=== PATIENT | male | born 1965 | race Caucasian/White ===

== ENCOUNTER → 2025-01-30 12:27 | Outpatient (CLI) | payer OTHER, SELFPAY ==
--- NOTE | 2025-01-30 12:31 | DI.ECHO.S_ITS ---
[facility] +---------+ [facility] : : [address] : : [place] : : [id number] : : Phone: [phone] Echocardiogram Report + + :Name: ROSELYN ZAIDI Study Date: 01/30/2025 Height: 75 in : :Hospital ReadingLocation: Weight: 230 lb : : Gender: Male BSA: 2.3 m2 : :: 1965 Age: 59 yrs BP: 149/70 mmHg: :Reason For Study: SOB : :Ordering Physician: BHARAT, : :CECILLE Performed By: Susi Skinner : :Referring: CECILLE NICHOLSON : + + Interpretation Summary The ejection fraction is estimated to be 60-65%. Diastolic parameters suggest probable normal left ventricular diastolic function and normal filling pressures. The right ventricle grossly appears normal in size with probable normal systolic function. The right ventricular systolic pressure is estimated to be at least 37 mmHg based on an estimated right atrial pressure of 3 mm Hg. Both atria are normal in size. There is mild aortic stenosis. Procedure: A two-dimensional transthoracic echocardiogram with color flow and Doppler was performed. The study quality was technically good. There is no prior echocardiogram noted for this patient. The heart rate ranged between 67- 70 bpm during the study. Left Ventricle: The left ventricle is normal in size and wall thickness. The ejection fraction is estimated to be 60-65%. Left ventricular wall motion is normal. Diastolic parameters suggest probable normal left ventricular diastolic function and normal filling pressures. Right Ventricle: The right ventricle grossly appears normal in size with probable normal systolic function. Atria: The left atrial size is normal. Both atria are normal in size. Right atrial size is normal. The interatrial septum grossly appears intact with no obvious evidence for an atrial septal defect. Mitral Valve: The mitral valve is normal in structure and function. There is no mitral valve stenosis. There is trace mitral regurgitation. Aortic Valve: The aortic valve is trileaflet. The aortic valve opens well. There is mild aortic stenosis. No aortic regurgitation is present. Tricuspid Valve: The tricuspid valve leaflets are thin and pliable. There is a trace or physiologic amount of tricuspid regurgitation. The right ventricular systolic pressure is estimated to be at least 37 mmHg based on an estimated right atrial pressure of 3 mm Hg. Pulmonic Valve: The pulmonic valve is not well seen, but is grossly normal. There is no pulmonic valvular regurgitation. Great Vessels: The aortic root is normal size. The ascending aorta is normal in size. The aortic arch is normal in size. The IVC is of normal diameter and collapses greater than 50% with a sniff. This suggests a low right atrial pressure of 3 mm Hg. Pericardium/ Pleura There is no pericardial effusion. There is no pleural effusion. MMode/2D Measurements & Calculations LVIDd: 5.8 cm LVOT diam: 2.1 cm LVIDs: 3.3 cm Ao root diam: 3.1 cm FS: 42.3 % asc Aorta Diam: 3.5 cm EPSS: 0.68 cm Ao Arch Diam (Prox Trans): 2.8 cm IVSd: 0.93 cm LVPWd: 0.73 cm LV porras. diameter/BSA (cm/m^2): 2.5 LV sys. diameter/BSA (cm/m^2): 1.4 LA A2 area: 14.7 cm2 RA long axis: 5.9 cm LA A4 area: 27.0 cm2 RA area: 23.2 cm2 LA length (vol): 7.0 cm RA vol: 78.0 ml LA vol: 48.0 ml RA : 33.5 ml/m2 LA vol index: 20.6 ml/m2 IVC diam: 1.6 cm RVD1 (basal): 5.1 cm TAPSE: 2.1 cm Doppler Measurements & Calculations Ao V2 max: 233.0 cm/sec LVOT Max Christiano: 87.7 cm/sec Ao V2 mean: 159.1 cm/sec LV V1 max P.1 mmHg Ao max P.7 mmHg LV V1 VTI: 19.5 cm Ao mean P.7 mmHg YOSEPH(I,D): 1.4 cm2 Ao V2 VTI: 49.9 cm YOSEPH(V,D): 1.3 cm2 sev ratio: 0.39 YOSEPH indexed to BSA (cm^2/m^2): 0.60 MV E max christiano: 137.3 cm/sec TR max christiano: 290.9 cm/sec MV A max christiano: 96.3 cm/sec TR max P.9 mmHg MV E/A: 1.4 PA V2 max: 109.7 cm/sec Med Peak E' Christiano: 9.3 cm/sec PA V2 mean: 82.7 cm/sec E/E' med: 14.8 PA mean P.0 mmHg Lat Peak E' Christiano: 13.5 cm/sec PA pr(Accel): -10.1 mmHg E/E' lat: 10.2 E/e' average: 12.5 MV dec time: 0.27 sec SV(LVOT): 69.8 ml Reading Physician:04:27 PM
== END ==
LOC: ECHO 12:30
PROVIDERS: Referring Provider Student in an Organized Health Care Education/Training Program; Visit Provider Student in an Organized Health Care Education/Training Program
DX: I35.0 Nonrheumatic aortic (valve) stenosis (principal); R42 Dizziness and giddiness; R06.02 Shortness of breath; R01.1 Cardiac murmur, unspecified
CPT/HCPCS: 93306